=== PATIENT | female | born 1970 | race Hispanic/Latino ===

== ENCOUNTER 2019-07-12 12:40 | Outpatient (CLI) | payer BC ==
--- NOTE | 2019-07-12 13:51 | MRI ---
MR OF THE RIGHT KNEE WITHOUT CONTRAST INDICATION: Right knee pain TECHNIQUE: Axial and coronal PD fat sat, sagittal T2 fat sat, sagittal PD turbo spin echo and T1 swathi nal images were obtained of the right knee. COMPARISON: None. FINDINGS: Motion artifact heavily limits image detail. Joint effusion: Small joint effusion Semimembranosus-medial gastrocnemius popliteal cyst: Tiny Lopez's cyst Ligaments: The ACL, PCL, MCL and LCLC are intact. Extensor mechanism: Intact. Menisci: There are complex degenerative type tears involving the medial and lateral menisci. There is a horizontally oriented oblique tear involving the body of the medial meniscus. Horizontal component extends into the anterior horn, body and posterior horn of the medial meniscus. There is a complex predominantly horizontally oriented tear involving the anterior horn, body and posterior horn of the lateral meniscus. Articular cartilage: There is moderate diffuse articular cartilage thinning involving the femoral tib ial compartments. There is moderate diffuse thinning involving the patellofemoral compartment. There are small marginal osteophytes affecting all major compartments of the right knee. Osseous structures: Normal marrow signal. Popliteus and IT band: Normal. IMPRESSION: 1. Mild osteoarthrosis of the right knee. 2. Medial and lateral meniscal tears.
== END 2019-07-12 12:41 | disposition home or self-care (01) ==
LOC: TBSIIMAG 12:40
PROVIDERS: ATTEND Orthopaedic Surgery
DX: M25.561 Pain in right knee (principal); G89.29 Other chronic pain; M17.11 Unilateral primary osteoarthritis, right knee; S83.241A Other tear of medial meniscus, current injury, right knee, initial encounter; S83.281A Other tear of lateral meniscus, current injury, right knee, initial encounter

== ENCOUNTER 2021-03-16 08:24 | Outpatient (CLI) | payer BC | END 2021-03-16 08:25 | disposition home or self-care (01) | LOC: TBSIIMAG 08:24 | PROVIDERS: ATTEND Orthopaedic Surgery | DX: M54.5 Low back pain (principal); M54.6 Pain in thoracic spine; M16.0 Bilateral primary osteoarthritis of hip; M47.816 Spondylosis without myelopathy or radiculopathy, lumbar region; M48.061 Spinal stenosis, lumbar region without neurogenic claudication; Z98.890 Other specified postprocedural states | CPT/HCPCS: 72148; 72190 ==